=== PATIENT | male | born 1940 | race Caucasian/White ===

== ENCOUNTER → 2018-01-23 | Day surgery (SDC) | payer MEDICARE ==
[~2018-01-23] MED LIST: CEFAZOLIN/Water 2 GM/20 ML SYRINGE ONE; Clindamycin/D5W 600 mg/50 ml Premix Bag ONE; Fentanyl 100 MCG/2 ML VIAL ONE; Heparin 0 ML ONE; Lidocaine 1% (PF) 30 ML VIAL ONE; Midazolam HCl 2 mg/2 ml Vial ONE
[2018-01-23 09:51] LABS: #Eosinphils 0.2 thou/uL (0.0-0.7); #Lymphocytes 1.6 thou/uL (1.20-3.40); #Monocytes 0.5 thou/uL (0.11-0.59); #Neutrophils 5.2 thou/uL (1.40-6.50); %Basophils 0.6 % (0.0-1.0); %Eosinophils 2.9 % (0.0-10.0); %Lymphocytes 20.6 % (21.0-51.0); %Monocytes 6.8 % (0.0-10.0); %Neutrophils 69.1 % (42.0-75.0); Hemoglobin 12.2 g/dL (14.0-18.0); Mean Corpuscular HGB CONC 32.8 g/dL (32.0-36.0); Mean Corpuscular Volume 82.3 fL (78.0-98.0); Mean Platelet Volume 7.2 fL (7.4-10.4); Platelet Count 205 thou/uL (130-400); RBC Distribution Width 13.8 % (11.5-14.5); Red Blood Cell (RBC) Count 4.54 mill/uL (4.70-6.10); White Blood Cell (WBC) Count 7.6 thou/uL (4.8-10.8)
[2018-01-23 10:04] LABS: Anion Gap 13 mmol/L (10-20); BUN (Urea Nitrogen) 21 mg/dL (8.4-25.7); Calc. Creatinine Clearance 0 mL/min (70-130); Calcium 9.3 mg/dL (7.8-10.44); Carbon Dioxide 26 mmol/L (23-31); Chloride 102 mmol/L (98-107); Estimated GFR-MDRD 47; Glucose 127 mg/dL (83-110); Potassium 4.6 mmol/L (3.5-5.1); Sodium 136 mmol/L (136-145)
[2018-01-23 10:36] LABS: INR-International Normal Ratio 1.1
[2018-01-23 10:37] LABS: PTT 29.2 SEC (22.9-36.1)
--- NOTE | 2018-01-24 07:31 | EKG ---
Test Reason : PREOP Blood Pressure : / mmHG Vent. Rate : 060 BPM Atrial Rate : 059 BPM P-R Int : 064 ms QRS Dur : 156 ms QT Int : 486 ms P-R-T Axes : 000 040 117 degrees QTc Int : 486 ms AV sequential or dual chamber electronic pacemaker When compared with ECG of 15-FEB-2013 13:52, No significant change was found Confirmed by DR. Sherman CRUZ ([id number]) on 01/24/2018 7:30:52 AM Referred By: [facility] Confirmed By:DR. Sherman CRUZ
== END ==
LOC: SDC 08:51
PROVIDERS: ATTEND Internal Medicine Cardiovascular Disease
PROC: 0JPT0PZ Removal of Cardiac Rhythm Related Device from Trunk Subcutaneous Tissue and Fascia, Open Approach (ICD-10-PCS; principal; 2018-01-23)
PROC: 0JH609Z Insertion of Cardiac Resynchronization Defibrillator Pulse Generator into Chest Subcutaneous Tissue and Fascia, Open Approach (ICD-10-PCS; 2018-01-23)
DX: I11.0 Hypertensive heart disease with heart failure (principal); I50.22 Chronic systolic (congestive) heart failure; I25.2 Old myocardial infarction; E11.9 Type 2 diabetes mellitus without complications; Z87.891 Personal history of nicotine dependence; Z79.4 Long term (current) use of insulin; Z79.899 Other long term (current) drug therapy; Z88.0 Allergy status to penicillin; Z88.5 Allergy status to narcotic agent; Z88.8 Allergy status to other drugs, medicaments and biological substances; Z95.1 Presence of aortocoronary bypass graft
CPT/HCPCS: 33264; 80048; 85025; 85610; 85730; 93005; C1882; 36415; 93010; 99152; J1644; J2001; J2250; J3010; J3490